=== PATIENT | female | born 1985 | race African-American/Black ===

== ENCOUNTER 2020-02-05 04:01 | Inpatient (IN) ==
[2020-02-05] MEDS ORDERED: ACETAMINOPHEN 500 MG TABLET PO STA ×2 (04:30→05:26)
[2020-02-05] MEDS ORDERED: SODIUM CHLORIDE 0.9% 1,000 ML IV STA (04:30)
[2020-02-05] MEDS ORDERED: ACETAMINOPHEN 500 MG TABLET ONE (04:32)
[2020-02-05 04:53] LABS: Basophils % 0.1 % (0.0-0.8); Hematocrit 37.1 VOL% (35.7-47.0); Hemoglobin 12.7 GM/DL (12.0-16.0); Immature Granulocytes % 1.1 %; Lymphocytes # 0.6 10*3/uL (1.4-4.0); Lymphocytes % 6.5 % (21.3-54.2); Mean Corpuscular HGB Conc 34.2 GM/DL (32-36); Mean Corpuscular Volume 90.5 FL (87-102); Mean Platelet Volume 10.6 FL (9.6-12.0); Monocytes % 4.8 % (1.7-12.7); Neutrophils % 87.5 % (38.7-73.9); Platelet Count 206 T/CUMM (130-400); Red Cell Distribution Width 14.7 % (9.3-17.3); White Blood Count 9.5 T/CUMM (4-12)
[2020-02-05 05:14] LABS: Albumin 2.4 G/DL (3.4-5.0); Bilirubin,Total 1.3 MG/DL (0.2-1.0); Osmolality,Calculated 262.8 MOS/KG (273-304); Potassium 3.1 MMOL/L (3.5-5.1); Total Protein 9.7 G/DL (6.4-8.3)
[2020-02-05 05:22] LABS: Band Neutrophils 4 % (0-10); Lymphocytes 2 % (20-55); Microcytosis Slight; Platelet Estimate Normal; Segmented Neutrophils 92 % (50-85); Total Cells Counted 100
[2020-02-05 06:02] LABS: Amorphous Crystals,Urine Occasional /HPF (Few); Bacteria,Urine Moderate /HPF (Few); Bilirubin,Urine Negative (Negative); Blood, Urine Moderate mg/dL (Negative); Glucose,Urine (UA) Negative (Negative); Hyaline Casts,Urine 1 /LPF (0-3); Ketones,Urine 5 mg/dL (Negative); Mucus,Urine Occasional /LPF (Occasional); Nitrite,Urine Negative (Negative); Protein,Urine 100 MG/DL; RBC,Urine 2 /HPF (0-4); Squamous Epithelial Cell,Urine Few /HPF (0-10); Urine Appearance CLOUDY (Clear); Urine Color Amber (Yellow); Urine Specific Gravity 1.017 (1.001-1.035); WBC,Urine 6 /HPF (0-6)
[2020-02-05] MEDS ORDERED: cefTRIAXone 2,000 MG in SODIUM CHLORIDE 0.9% 100 ML IV ONE (07:01)
[2020-02-05 07:25] LABS: Barbiturates Screen,Urine Negative (Negative); Benzodiazepines Screen,Urine Negative (Negative); Cannabinoid Screen,Urine Positive (Negative); Opiate Screen,Urine Negative (Negative); Phencyclidine Screen,Urine Negative (Negative)
[2020-02-05] MEDS ORDERED: cefTRIAXone 1,000 MG VIAL ONE (07:26)
[2020-02-05] MEDS ORDERED: ONDANSETRON 4 MG/2 ML VIAL IV PRN (08:34)
[2020-02-05] MEDS ORDERED: GLUCAGON 1 MG VIAL IM PRN (08:34)
[2020-02-05] MEDS ORDERED: DOCUSATE SODIUM 100 MG CAPSULE PO PRN (08:34)
[2020-02-05] MEDS ORDERED: NICOTINE 21 MG/24 HR PATCH TRANSDERM PRN (08:34)
[2020-02-05] MEDS ORDERED: SODIUM CHLORIDE 0.9% 650 ML IV ONE (08:34)
[2020-02-05] MEDS ORDERED: LACTULOSE 20 GM/30 ML UDCUP PO PRN (08:34)
[2020-02-05] MEDS ORDERED: DEXTROSE 50% 25 GM/50 ML VIAL IV PRN (08:34)
[2020-02-05] MEDS ORDERED: MORPHINE 4 MG/1 ML VIAL IV PRN (08:34)
[2020-02-05] MEDS ORDERED: PIPERACILLIN/TAZOBACTAM 3,375 MG in SODIUM CHLORIDE 0.9% 100 ML IV SCH (09:00)
[2020-02-05] MEDS ORDERED: VANCOMYCIN INJ 750 MG in SODIUM CHLORIDE 0.9% 250 ML IV SCH (09:00)
[2020-02-05] MEDS: SODIUM CHLORIDE 0.9% 1,000 ML IV SCH ×2 (12:10→16:33)
[2020-02-05] MEDS: ENOXAPARIN 40 MG/0.4 ML SYRINGE SUBCUT SCH (12:10)
[2020-02-05] MEDS ORDERED: MAGNESIUM SULF RIDER 2 GM in PREMIX 1 EACH IV ONE (16:23)
[2020-02-05] MEDS ORDERED: POTASSIUM CHLORIDE 20 MEQ TABLET PO ONE (16:23)
[2020-02-06] MEDS: ACETAMINOPHEN 325 MG TABLET PO PRN ×2 (00:25→17:15)
[2020-02-06] MEDS: SODIUM CHLORIDE 0.9% 1,000 ML IV SCH ×4 (02:18→22:58)
[2020-02-06 06:06] LABS: Basophils % 0.5 % (0.0-0.8); Hematocrit 29.7 VOL% (35.7-47.0); Hemoglobin 9.9 GM/DL (12.0-16.0); Immature Granulocytes % 8.1 %; Immature Granulocytes Absolute 0.54 #; Lymphocytes # 0.6 10*3/uL (1.4-4.0); Lymphocytes % 8.3 % (21.3-54.2); Mean Corpuscular HGB Conc 33.3 GM/DL (32-36); Mean Platelet Volume 11.5 FL (9.6-12.0); Monocytes % 5.6 % (1.7-12.7); Neutrophils % 77.5 % (38.7-73.9); Platelet Count 182 T/CUMM (130-400); Red Blood Count 3.23 MC/CUMM (3.8-5.5); Red Cell Distribution Width 15.1 % (9.3-17.3); White Blood Count 6.7 T/CUMM (4-12)
[2020-02-06 06:33] LABS: Albumin 1.7 G/DL (3.4-5.0); Bilirubin,Total 1.1 MG/DL (0.2-1.0); Calcium 7.5 MG/DL (8.5-10.1); Osmolality,Calculated 272.7 MOS/KG (273-304); Potassium 3.5 MMOL/L (3.5-5.1); Risk Ratio 3.5; Thyroid Stimulating Hormone 1.75 uIU/ml (0.358-3.74); Total Protein 7.4 G/DL (6.4-8.3); VLDL CHOLESTEROL 15.6 MG/DL
[2020-02-06 06:50] LABS: Anisocytosis 2+; Band Neutrophils 26 % (0-10); Burr Cells Few; Lymphocytes 8 % (20-55); Metamyelocytes 5 %; Platelet Estimate Normal; Segmented Neutrophils 55 % (50-85); Total Cells Counted 100
[2020-02-06 06:51] LABS: Macrocytosis 1+
[2020-02-06] MEDS ORDERED: cefTRIAXone 1,000 MG in SYRINGE 1 EACH IV SCH (09:00)
[2020-02-06] MEDS: ENOXAPARIN 40 MG/0.4 ML SYRINGE SUBCUT SCH (11:31)
[2020-02-06] MEDS ORDERED: POTASSIUM CHLORIDE 20 MEQ TABLET PO ONE (16:36)
[2020-02-06] MEDS ORDERED: SULFAMETHOX/TRIMETHOPRIM 800-160 MG TABLET PO SCH (21:00)
[2020-02-06] MEDS: busPIRone 5 MG TABLET PO SCH (21:05)
[2020-02-07] MEDS: ACETAMINOPHEN 325 MG TABLET PO PRN ×3 (00:17→23:30)
[2020-02-07 06:04] LABS: Basophils % 0.9 % (0.0-0.8); Hematocrit 28.9 VOL% (35.7-47.0); Hemoglobin 9.6 GM/DL (12.0-16.0); Immature Granulocytes % 3.8 %; Immature Granulocytes Absolute 0.13 #; Lymphocytes # 0.3 10*3/uL (1.4-4.0); Mean Corpuscular HGB Conc 33.2 GM/DL (32-36); Mean Corpuscular Volume 92.6 FL (87-102); Mean Platelet Volume 11.6 FL (9.6-12.0); Monocytes % 6.5 % (1.7-12.7); Neutrophils % 78.8 % (38.7-73.9); Platelet Count 172 T/CUMM (130-400); Red Blood Count 3.12 MC/CUMM (3.8-5.5); Red Cell Distribution Width 15.3 % (9.3-17.3); White Blood Count 3.4 T/CUMM (4-12)
[2020-02-07 06:32] LABS: Anisocytosis 2+; Band Neutrophils 25 % (0-10); Lymphocytes 10 % (20-55); Macrocytosis 1+; Platelet Estimate Normal; Segmented Neutrophils 60 % (50-85); Total Cells Counted 100
[2020-02-07 06:33] LABS: Burr Cells Few
[2020-02-07 06:53] LABS: Albumin 1.5 G/DL (3.4-5.0); Bilirubin,Total 0.7 MG/DL (0.2-1.0); Calcium 7.5 MG/DL (8.5-10.1); Osmolality,Calculated 269.8 MOS/KG (273-304); Potassium 3.3 MMOL/L (3.5-5.1); Total Protein 6.6 G/DL (6.4-8.3)
[2020-02-07] MEDS: SODIUM CHLORIDE 0.9% 1,000 ML IV SCH ×3 (07:01→23:35)
[2020-02-07] MEDS ORDERED: cefTRIAXone 1,000 MG in SYRINGE 1 EACH IV SCH (09:00)
[2020-02-07] MEDS: POTASSIUM CHLORIDE 20 MEQ TABLET PO SCH (09:14)
[2020-02-07] MEDS: busPIRone 5 MG TABLET PO SCH ×3 (09:15→21:24)
[2020-02-07] MEDS: ENOXAPARIN 40 MG/0.4 ML SYRINGE SUBCUT SCH (09:17)
[2020-02-07] MEDS: PIPERACILLIN/TAZOBACTAM 3,375 MG in SODIUM CHLORIDE 0.9% 100 ML IV SCH ×2 (11:33→18:20)
[2020-02-07] MEDS: VANCOMYCIN INJ 1,000 MG in SODIUM CHLORIDE 0.9% 250 ML IV SCH (15:41)
[2020-02-08] MEDS: PIPERACILLIN/TAZOBACTAM 3,375 MG in SODIUM CHLORIDE 0.9% 100 ML IV SCH (02:55)
[2020-02-08] MEDS: VANCOMYCIN INJ 1,000 MG in SODIUM CHLORIDE 0.9% 250 ML IV SCH ×2 (04:30→16:24)
[2020-02-08] MEDS ORDERED: fentaNYL 100 MCG/2 ML VIAL ONE ×2 (08:01→08:47)
[2020-02-08] MEDS ORDERED: MIDAZOLAM 2 MG/2 ML VIAL ONE (08:01)
[2020-02-08] MEDS ORDERED: ONDANSETRON 4 MG/2 ML VIAL ONE (08:41)
[2020-02-08] MEDS ORDERED: LIDOCAINE 2% 5 ML VIAL ONE (08:41)
[2020-02-08] MEDS ORDERED: propofoL 200 MG/20 ML VIAL IV ONE (08:41)
[2020-02-08] MEDS ORDERED: SEVOFLURANE 1 UNIT/15 MINUTE INH ONE ×2 (08:41→08:53)
[2020-02-08] MEDS ORDERED: SUCCINYLCHOLINE 200 MG/10 ML VIAL ONE (08:41)
[2020-02-08] MEDS ORDERED: PHENYLEPHRINE 1 MG/10 ML SYRINGE IV ONE (08:52)
[2020-02-08] MEDS ORDERED: LACTATED RINGERS 1,000 ML IV ONE (08:53)
[2020-02-08] MEDS: SODIUM CHLORIDE 0.9% 1,000 ML IV SCH ×2 (10:09→21:36)
[2020-02-08] MEDS: SULFAMETHOX/TRIMETHOPRIM 800-160 MG TABLET PO SCH (10:09)
[2020-02-08] MEDS: ENOXAPARIN 40 MG/0.4 ML SYRINGE SUBCUT SCH (10:09)
[2020-02-08] MEDS: POTASSIUM CHLORIDE 20 MEQ TABLET PO SCH (10:09)
[2020-02-08] MEDS: MEROPENEM 500 MG in SODIUM CHLORIDE 0.9% 100 ML IV SCH ×3 (10:10→21:35)
[2020-02-08] MEDS: busPIRone 5 MG TABLET PO SCH ×3 (10:13→21:34)
[2020-02-09] MEDS: MEROPENEM 500 MG in SODIUM CHLORIDE 0.9% 100 ML IV SCH ×4 (02:27→21:00)
[2020-02-09] MEDS: VANCOMYCIN INJ 1,000 MG in SODIUM CHLORIDE 0.9% 250 ML IV SCH ×2 (04:42→16:40)
[2020-02-09 05:44] LABS: Basophils % 0.2 % (0.0-0.8); Eosinophils % 0.2 % (0.00-10.9); Hematocrit 27.2 VOL% (35.7-47.0); Immature Granulocytes % 0.9 %; Immature Granulocytes Absolute 0.04 #; Lymphocytes # 0.5 10*3/uL (1.4-4.0); Mean Corpuscular HGB Conc 33.1 GM/DL (32-36); Mean Corpuscular Volume 93.2 FL (87-102); Monocytes % 8.5 % (1.7-12.7); Neutrophils % 78.2 % (38.7-73.9); Platelet Count 228 T/CUMM (130-400); Red Blood Count 2.92 MC/CUMM (3.8-5.5); Red Cell Distribution Width 15.9 % (9.3-17.3); White Blood Count 4.3 T/CUMM (4-12)
[2020-02-09 05:58] LABS: Calcium 7.6 MG/DL (8.5-10.1); Osmolality,Calculated 276.3 MOS/KG (273-304); Potassium 3.3 MMOL/L (3.5-5.1)
[2020-02-09] MEDS ORDERED: POTASSIUM CHLORIDE 20 MEQ TABLET PO ONE (08:01)
[2020-02-09 08:20] LABS: Band Neutrophils 14 % (0-10); Lymphocytes 8 % (20-55); Metamyelocytes 1 %; Segmented Neutrophils 66 % (50-85); Total Cells Counted 100
[2020-02-09 08:21] LABS: Anisocytosis 1+; Burr Cells Few; Macrocytosis 1+; Ovalocytes Few; Platelet Estimate Normal
[2020-02-09] MEDS: busPIRone 5 MG TABLET PO SCH ×3 (09:13→21:00)
[2020-02-09] MEDS: ENOXAPARIN 40 MG/0.4 ML SYRINGE SUBCUT SCH (09:14)
[2020-02-09] MEDS: POTASSIUM CHLORIDE 20 MEQ TABLET PO SCH (09:14)
[2020-02-09] MEDS ORDERED: MAGNESIUM SULF RIDER 2 GM in PREMIX 1 EACH IV ONE (09:20)
[2020-02-09] MEDS: SODIUM CHLORIDE 0.9% 1,000 ML IV SCH ×2 (11:04→16:40)
[2020-02-10] MEDS: MEROPENEM 500 MG in SODIUM CHLORIDE 0.9% 100 ML IV SCH ×2 (01:08→09:15)
[2020-02-10] MEDS: VANCOMYCIN INJ 1,000 MG in SODIUM CHLORIDE 0.9% 250 ML IV SCH (03:49)
[2020-02-10 08:28] VITALS: BP 120/76
[2020-02-10] MEDS ORDERED: POTASSIUM CHLORIDE 20 MEQ TABLET PO ONE (08:54)
[2020-02-10] MEDS: SULFAMETHOX/TRIMETHOPRIM 800-160 MG TABLET PO SCH (09:15)
[2020-02-10] MEDS: busPIRone 5 MG TABLET PO SCH (09:15)
[2020-02-10] MEDS: POTASSIUM CHLORIDE 20 MEQ TABLET PO SCH (09:16)
== END 2020-02-10 10:31 | disposition home or self-care (01) | DRG 854 ==
LOC: EDBD → EDUNIT# → N.EDINP 04:01 → N.ED 04:01 → N.5E 10:04
PROVIDERS: ADMIT Internal Medicine; ATTEND Internal Medicine